=== PATIENT | male | born 1960 | race Caucasian/White ===

== ENCOUNTER 2017-03-21 08:15 | Outpatient (RCR) | payer BC ==
--- NOTE | 2017-03-13 14:37 | PT/OT/ST INITIAL EVALUATION ---
Department of Health and Human Services Form Approved [facility] Care Financing Administration OMB No. [id number] PLAN OF CARE/ASSESSMENT FOR OUTPATIENT REHABILITATION (Complete for Initial Claims Only) 1. PATIENT'S NAME Geovanni Isaacs 2. ACC # [id number] 3. [facility] [id number] 4. PROVIDER NO. [id number] 5. TYPE: PT 6. PRIOR HOSPITALIZATION None 7. PRIMARY DX Back muscle spasms 8. SECONDARY DX Right low back pain 9. ONSET DATE 03/05/2017 10. REFERRAL DATE 03/10/2017 11. SOC. DATE 03/12/2017 12. TIME OF EVAL 7:45 a.m. 12. RE[address]YSICIAN Dr. Ilan Grigsby 13. CHARGES/UNITS Evaluation, manual therapy, electric stim 14. G CODES Na 15. PRIOR LEVEL OF FUNCTION; PERTINENT HISTORY (Prior therapy results, reason for referral.) S: Reason for referral: The patient was referred to physical therapy by Dr. Grigsby with the diagnosis of low back muscle spasms. 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 Description/mechanism of injury: The patient reports that he is not sure what he did, however, he started experiencing pain at his right low back region when golfing on 03/05/2017. The patient notes that he had increased muscle spasms and pain. The patient states that he feels his back has been feeling weak and slightly aggravated for the past week or 2. The patient has done a great deal of gardening and golfing. The patient does not report any other significant back history of previous surgeries. The patient feels he is walking very slowly due to the pain. He describes the pain as being a sharp pain. He has increased pain going from sitting to standing. He does not report pain sleeping at night; however, he has been taking muscle relaxers. Pain level: Current pain rating 7/10. Diagnostic tests: None. Past medical history: None Current medications: Includes muscle relaxers and ibuprofen. Personal health rating: The patient rates his overall health as good. 16. INITIAL ASSESSMENT/SAFETY PRECAUTIONS/MEDICAL COMPLICATIONS (Level of function at start of care. Be specific, use objective measures, list problems.) O: APPEARANCE, OBSERVATION AND GAIT: In standing, th e patient demonstrates left lateral shift. Increased muscle tension and spasm noted at right lumbar to thoracic paraspinals. Tenderness noted at L2-L3 region. The patient had increased muscle guarding and tenderness with gentle anterior to posterior mobilization along right lumbar paraspinals. RANGE OF MOTION/FLEXIBILITY: Trunk range of motion flexion 40%, extension only to neutral. Right and left side bending were 60%. Rotation 75%. Lower extremity flexibility was limited due to pain at low back with both active and passive motion to lower extremities. The patient did have some difficulty rolling to both the right and left due to pain at his back. TODAY'S TREATMENT: Treatment included initial evaluation. Pre-mod electric stim to right lumbar paraspinals. Manual therapy, which included gentle posterior to anterior mobilizations and myofascial release. Treatment was ended with instruction of home exercise program for range of motion, flexibility, and Kinesiotherapy taping to right lumbar paraspinals. 17. INITIAL POC: (Specify procedures, modalities, short and [facility] goals) A: The patient presents with right low back strain and muscle spasms. PROGNOSIS: The patient is a good candidate for physical therapy to decrease pain and muscle guarding and progress with range of motion, flexibility, and strength. SHORT TERM GOALS: 1. The patient to be compliant with home exercise program in 1 week. 2. The patient to demonstrate 75% trunk range of motion in all directions without pain in 4 weeks. 3. The patient to be able to go from sitting to standing without pain at back in 2 weeks. 4. The patient to demonstrate good trunk stability when rolling and changing positions without pain in 2 weeks. 5. The patient to report that he is able to perform normal daily activities and return to gardening and golfing without pain in his back in 6 weeks. P: The patient will be seen 2 times a week over the next 6 weeks. Treatment to include modalities to decrease pain and inflammation. We will progress the patient with range of motion, flexibility, stabilization and light strengthening activities as tolerated. 18. FREQUENCY 2 times per week 19. DURATION 6 weeks 20. FUNCTIONAL LEVEL (End of claim period) 21. PHYSICIAN SIGNATURE ? ON FILE OR ENTER HERE: 22. DATE: I certify the need for these services furnished under this plan of care and if for partial hospitalization. 23. CERTIFICATION FROM THROUGH [facility]
== END 2017-03-31 13:07 | disposition home or self-care (01) ==
LOC: PT 08:15
PROVIDERS: ATTEND Family Medicine
DX: M62.830 Muscle spasm of back (principal)
CPT/HCPCS: 97035; 97110; 97140; 97161; G0283; 97014